=== PATIENT | male | born 1940 | race Caucasian/White ===

== ENCOUNTER 2016-11-15 17:11 | Emergency (ER) | payer MEDICARE, OTHER ==
[~2016-11-15 17:11] MED LIST: ACETAMINOPHEN325 MG PO; ALBUTEROL S3 ML/VIAL IH; ARICEPT10 MG PO; CEFDINIR300 MG PO; DULCOLAX5 MG PO; IPRAT-ALBUT 0.5-3 ML IH; METOPROLOL TART50 MG PO; NEURONTIN100 MG PO; ONCE DAILY1 EACH PO; PAXIL20 MG PO; PERCOCET 10-321 EACH PO; PROTONIX40 MG PO; REMERON15 MG PO; RESTORIL15 MG PO; SEROQUEL25 MG PO; XANAX0.5 MG PO; XARELTO15 MG PO
== END 2016-11-15 21:00 | disposition home or self-care (01) ==
LOC: ER 17:11
DX: R07.2 Precordial pain (principal); I48.91 Unspecified atrial fibrillation; I25.10 Atherosclerotic heart disease of native coronary artery without angina pectoris; E78.5 Hyperlipidemia, unspecified; J44.9 Chronic obstructive pulmonary disease, unspecified; F41.9 Anxiety disorder, unspecified; F03.90 Unspecified dementia, unspecified severity, without behavioral disturbance, psychotic disturbance, mood disturbance, and anxiety; Z79.899 Other long term (current) drug therapy; Z88.6 Allergy status to analgesic agent; Z88.8 Allergy status to other drugs, medicaments and biological substances
CPT/HCPCS: 36415; 96361; 96374